=== PATIENT | female | born 1965 | race Caucasian/White ===

== ENCOUNTER → 2016-05-15 | Outpatient (CLI) | payer OTHER | LOC: NM 09:00 | DX: R10.11 Right upper quadrant pain (principal); R79.89 Other specified abnormal findings of blood chemistry; A04.8 Other specified bacterial intestinal infections; E78.00 Pure hypercholesterolemia, unspecified | CPT/HCPCS: 78227; 87338; A9537; J2805 ==

== ENCOUNTER → 2020-10-25 | Outpatient (CLI) | payer OTHER ==
[~2020-10-25] MED LIST: KEFLEX500 MG PO; ZOFRAN ODT4 MG PO
[2020-10-25 09:52] LABS: HEMOGLOBIN 14.4 gm/dl (12.3-15.3); RED BLOOD COUNT 4.24 M/UL (4.00-5.10); WHITE BLOOD COUNT 4.6 K/UL (4.5-11.0)
[2020-10-25 10:15] LABS: BUN/CREATININE RATIO 9 (0-10)
[2020-10-26 11:14] LABS: SARS COV-2 IGG AB Positive (Negative)
== END ==
LOC: LAB 08:37
PROVIDERS: Family Medicine
DX: I10 Essential (primary) hypertension (principal); U07.1 COVID-19
CPT/HCPCS: 36415; 80053; 80061; 83735; 85027; 86769

== ENCOUNTER → 2020-11-09 | Outpatient (CLI) | payer OTHER ==
[2020-11-09 10:50] LABS: BUN/CREATININE RATIO 9 (0-10)
== END ==
LOC: LAB 10:01
PROVIDERS: Family Medicine
DX: R94.5 Abnormal results of liver function studies (principal); Z86.59 Personal history of other mental and behavioral disorders
CPT/HCPCS: 36415; 80053

== ENCOUNTER 2020-11-12 19:01 | Emergency (ER) | payer OTHER ==
[2020-11-12 20:27] LABS: HEMOGLOBIN 13.2 gm/dl (12.3-15.3); RED BLOOD COUNT 4.07 M/UL (4.00-5.10); WHITE BLOOD COUNT 8.6 K/UL (4.5-11.0)
[2020-11-12 20:46] LABS: BUN/CREATININE RATIO 7 (0-10)
== END 2020-11-12 22:14 | disposition home or self-care (01) ==
LOC: ER1 19:01
PROVIDERS: Student in an Organized Health Care Education/Training Program
DX: S52.501A Unspecified fracture of the lower end of right radius, initial encounter for closed fracture (principal); I10 Essential (primary) hypertension; Z88.2 Allergy status to sulfonamides; Z23 Encounter for immunization; W19.XXXA Unspecified fall, initial encounter
CPT/HCPCS: 70450; 71045; 73090; 73110; 80053; 82550; 82553; 83690; 83735; 83874; 84100; 84484; 85025; 90471; 90715; 93005; 99285; G0480

== ENCOUNTER 2020-11-17 22:57 | Emergency (ER) | payer OTHER ==
[2020-11-18 00:46] LABS: HEMOGLOBIN 13.6 gm/dl (12.3-15.3); RED BLOOD COUNT 4.24 M/UL (4.00-5.10)
[2020-11-18 01:12] LABS: BUN/CREATININE RATIO 7 (0-10)
== END 2020-11-18 10:51 | disposition home or self-care (01) ==
LOC: ER1 22:57
PROVIDERS: Family Medicine
DX: T43.591A Poisoning by other antipsychotics and neuroleptics, accidental (unintentional), initial encounter (principal); F32.9 Major depressive disorder, single episode, unspecified
CPT/HCPCS: 80053; 80307; 81001; 85025; 85610; 93005; 99284; G0480

== ENCOUNTER → 2021-10-05 | Outpatient (CLI) | payer OTHER | LOC: EXRD 09:39 | DX: M25.551 Pain in right hip (principal); M16.11 Unilateral primary osteoarthritis, right hip | CPT/HCPCS: 73502 ==

== ENCOUNTER → 2021-10-24 | Outpatient (CLI) | payer OTHER | LOC: MAMO 09-15 09:30 | DX: Z12.31 Encounter for screening mammogram for malignant neoplasm of breast (principal) | CPT/HCPCS: 77063; 77067 ==

== ENCOUNTER → 2021-11-10 | Outpatient (CLI) | payer OTHER | LOC: EXRD 10:28 | DX: R05.9 Cough, unspecified (principal); Z86.16 Personal history of COVID-19; L98.9 Disorder of the skin and subcutaneous tissue, unspecified | CPT/HCPCS: 71046; 73130 ==